=== PATIENT | male | born 1985 | race Caucasian/White ===

== ENCOUNTER → 2016-07-27 | Outpatient (CLI) | payer BC | LOC: KOH-I 14:11 | DX: M25.512 Pain in left shoulder (principal) | CPT/HCPCS: 73030 ==

== ENCOUNTER → 2016-08-16 | Outpatient (CLI) | payer BC, MEDICARE | LOC: US 07:45 | DX: R11.0 Nausea (principal); R94.5 Abnormal results of liver function studies | CPT/HCPCS: 76705 ==

== ENCOUNTER → 2016-09-08 | Outpatient (CLI) | payer BC, MEDICARE | LOC: RAD 08-23 09:00 | DX: S46.012A Strain of muscle(s) and tendon(s) of the rotator cuff of left shoulder, initial encounter (principal); Z53.9 Procedure and treatment not carried out, unspecified reason | CPT/HCPCS: 73040; 73222; A9577; Q9962 ==

== ENCOUNTER → 2021-12-19 | Outpatient (CLI) | payer BC, OTHER ==
[~2021-12-19] MED LIST: AUGMENTIN 875-1 EACH PO; BACTROBAN OINT22 GM EXT; IBUPROFEN600 MG PO; NAPROSYN500 MG PO
== END ==
LOC: SLEEP 14:19
DX: G47.10 Hypersomnia, unspecified (principal); G47.30 Sleep apnea, unspecified
CPT/HCPCS: 95810